=== PATIENT | male | born 2000 | race Caucasian/White ===

== ENCOUNTER → 2024-08-08 | Outpatient (CLI) | payer OTHER ==
--- NOTE | 2024-08-08 13:39 | XR ---
EXAMINATION TYPE: XR thoracic spine 2V DATE OF EXAM: 08/08/2024 9:41 AM COMPARISON: None. CLINICAL INDICATION: Male, 24 years old with history of M54.2 CERVICALGIA G89.29 CHRONIC PAIN, pain TECHNIQUE: 3 view(s) obtained. FINDINGS: There are 12 thoracic type vertebral bodies. Pedicles are intact. Disc heights are preserved. Vertebr al body heights are preserved. Alignment is normal. IMPRESSION: 1. No acute osseous abnormality thoracic spine. [facility], , 08/08/2024 1:37 PM
--- NOTE | 2024-08-08 13:40 | XR ---
EXAMINATION TYPE: XR cervical spine limited DATE OF EXAM: 08/08/2024 9:41 AM COMPARISON: None. CLINICAL INDICATION: Male, 24 years old with history of M54.2 CERVICALGIA G89.29 CHRONIC PAIN, pain TECHNIQUE: 3 view(s) obtained. FINDINGS: Vertebral body heights are preserved. Prevertebral space is normal. Disc heights are preserved. Poste rior spinal lamellar line is intact. Odontoid appears normal. Follow-up MRI can be performed as clini brendon indicated IMPRESSION: 1. Unremarkable 3 view cervical spine [facility], , 08/08/2024 1:38 PM
== END | disposition home or self-care (01) ==
LOC: RADXRMAIN 09:04
PROVIDERS: ATTEND Family Medicine
DX: M54.2 Cervicalgia (principal); G89.29 Other chronic pain; M54.6 Pain in thoracic spine
CPT/HCPCS: 72040; 72070